=== PATIENT | male | born 1980 | race Caucasian/White ===

== ENCOUNTER 2024-05-05 06:23 | Day surgery (SDC) | payer BC, SELFPAY ==
[2024-05-05 09:45] VITALS: BMI 45.8
[2024-05-05 09:50] VITALS: BP 135/76
[2024-05-05 09:59] VITALS: BMI 45.8
[2024-05-05 11:19] VITALS: BP 117/71
[2024-05-05 11:30] VITALS: BP 135/70
[2024-05-05 11:47] VITALS: BP 173/96
== END 2024-05-05 11:51 | disposition home or self-care (01) ==
LOC: SDS 06:23
PROVIDERS: ATTENDING PHYSICIAN Internal Medicine Gastroenterology
DX: Z12.11 Encounter for screening for malignant neoplasm of colon (principal); D12.2 Benign neoplasm of ascending colon; K64.8 Other hemorrhoids; Z86.0100 Personal history of colon polyps, unspecified
CPT/HCPCS: 45385; 88305